=== PATIENT | female | born 1985 | race Caucasian/White ===

== ENCOUNTER 2016-12-17 10:58 | Emergency (ER) | payer OTHER ==
[~2016-12-17 10:58] MED LIST: COLACE100 MG PO; IMODIUM2 MG; LAC PO; LEVAQUIN500 MG PO; MAC100 PO; NORCO1 TA2 PO
[2016-12-17 11:00] VITALS: BP 124/62
== END 2016-12-17 12:36 | disposition home or self-care (01) ==
LOC: ED 10:58
DX: S63.614A Unspecified sprain of right ring finger, initial encounter (principal); S93.505A Unspecified sprain of left lesser toe(s), initial encounter; Y08.89XA Assault by other specified means, initial encounter; Y93.89 Activity, other specified; Y92.89 Other specified places as the place of occurrence of the external cause; Y99.8 Other external cause status
CPT/HCPCS: Q0092

== ENCOUNTER 2017-01-30 19:42 | Emergency (ER) | payer OTHER ==
[2017-01-30 21:16] VITALS: BP 146/75
== END 2017-01-30 21:16 | disposition home or self-care (01) ==
LOC: ED 19:42
DX: J02.9 Acute pharyngitis, unspecified (principal); I88.9 Nonspecific lymphadenitis, unspecified; Z88.0 Allergy status to penicillin; Z90.89 Acquired absence of other organs
CPT/HCPCS: J1885; J2930

== ENCOUNTER 2017-11-07 15:58 | Inpatient (IN) | payer OTHER ==
[~2017-11-07] VITALS: Ht 162.6 cm; Wt 71.9 kg
[2017-11-07 16:29] VITALS: Ht 162.6 cm; Wt 71.9 kg
[2017-11-07 17:53] LABS: PLATELET COUNT 222 x10^3mcL (130-400)
[2017-11-07 17:55] LABS: RED CELL DISTRIBUTION WIDTH 16.3 % (11.5-14.5)
[2017-11-07 18:04] LABS: CALCIUM 8.5 mg/dL (8.5-10.1); CARBON DIOXIDE 24.3 mmol/L (21-32); CHLORIDE SERUM 106 mmol/L (98-107); CREATININE SERUM 0.6 mg/dL (0.6-1.0); GFR1 > 60 mL/min; GLUCOSE SERUM 84 mg/dL (74-106); POTASSIUM SERUM 3.2 mmol/L (3.5-5.1); SODIUM SERUM 135 mmol/L (136-145)
[2017-11-07 18:07] LABS: ALBUMIN 3.2 g/dL (3.4-5.0); ALKALINE PHOSPHATASE 67 U/L (46-116); ALT/SGPT 15 U/L (14-59); AMYLASE 15 U/L (25-115); AST/SGOT 9 U/L (15-37); BILIRUBIN TOTAL 1.1 mg/dL (0.20-1.00); LIPASE 36 IU/L (73-393); TOTAL PROTEIN, SERUM 7.7 g/dL (6.4-8.2)
[2017-11-07 18:30] LABS: BAND NEUTROPHIL 12 % (0-10); BASOPHIL 0 % (0-2); MONOCYTE 2 % (0-7); SEGMENTED NEUTROPHILS 78 % (37-75)
[2017-11-07 18:32] LABS: PLATELET MORPHOLOGY PLATELETS NORMAL; rbc morphology (normal/abnorm) ABNORMAL (NORMAL)
[2017-11-07 20:30] VITALS: BP 108/63
[2017-11-07 21:05] LABS: T3 TOTAL 0.83 ng/mL
[2017-11-07 21:13] LABS: FREE T4 1.42 ng/dL (0.76-1.46); FREE THYROXINE INDEX 3.3 ug/dL (1.4-4.5); T4(THYROXINE) 8.7 ug/dL (4.7-13.3)
[2017-11-07 21:15] LABS: MAGNESIUM 1.7 mg/dL (1.8-2.4)
[2017-11-07 21:18] LABS: CHOLESTEROL/HDL RATIO 1.3
[2017-11-08 04:28] VITALS: BP 100/55
[2017-11-08 09:53] VITALS: BP 101/55
[2017-11-08 12:40] VITALS: BP 106/59
[2017-11-08 17:31] VITALS: BP 111/61; BP 111/73
[2017-11-08 17:59] LABS: microscopic required? YES; urine erythrocyte 2+ (NEGATIVE)
[2017-11-08 18:07] LABS: AMPHETAMINE QUAL UR NONE DETECTED (NEG <=1000)
[2017-11-08 19:15] VITALS: BP 109/61
[2017-11-09 05:59] VITALS: BP 103/60
[2017-11-09 06:45] LABS: CALCIUM 7.8 mg/dL (8.5-10.1); CARBON DIOXIDE 24.4 mmol/L (21-32); CHLORIDE SERUM 109 mmol/L (98-107); CREATININE SERUM 0.6 mg/dL (0.6-1.0); GFR1 > 60 mL/min; GLUCOSE SERUM 88 mg/dL (74-106); MAGNESIUM 2.2 mg/dL (1.8-2.4); SODIUM SERUM 141 mmol/L (136-145)
[2017-11-09 07:08] LABS: POTASSIUM SERUM 2.9 mmol/L (3.5-5.1)
[2017-11-09 07:29] LABS: BASOPHIL % 0.3 % (0-2); PLATELET COUNT 183 x10^3mcL (130-400)
[2017-11-09 08:20] LABS: RED CELL DISTRIBUTION WIDTH 16.2 % (11.5-14.5)
[2017-11-09 08:40] VITALS: BP 107/52
[2017-11-09 17:25] VITALS: BP 111/69
[2017-11-10 05:31] VITALS: BP 97/60
[2017-11-10 08:02] LABS: BASOPHIL % 0.4 % (0-2); PLATELET COUNT 217 x10^3mcL (130-400)
[2017-11-10 08:05] LABS: RED CELL DISTRIBUTION WIDTH 16.1 % (11.5-14.5)
[2017-11-10 08:25] LABS: CALCIUM 7.8 mg/dL (8.5-10.1); CARBON DIOXIDE 25.3 mmol/L (21-32); CHLORIDE SERUM 109 mmol/L (98-107); CREATININE SERUM 0.5 mg/dL (0.6-1.0); GFR1 > 60 mL/min; GLUCOSE SERUM 88 mg/dL (74-106); MAGNESIUM 2.2 mg/dL (1.8-2.4); PHOSPHOROUS 2.4 mg/dL (2.5-4.9); POTASSIUM SERUM 4.1 mmol/L (3.5-5.1); SODIUM SERUM 143 mmol/L (136-145)
[2017-11-10 09:29] VITALS: BP 113/61
== END 2017-11-10 15:40 | disposition home or self-care (01) | DRG 720 ==
LOC: ED 15:58 → DU 18:59 → MU 18:59 → DU 20:16 → MU 11-08 16:47
PROVIDERS: Emergency Medicine; Family Medicine
DX: A41.9 Sepsis, unspecified organism (principal); N17.0 Acute kidney failure with tubular necrosis; E44.0 Moderate protein-calorie malnutrition; E87.1 Hypo-osmolality and hyponatremia; E87.6 Hypokalemia; Z88.0 Allergy status to penicillin; Z90.49 Acquired absence of other specified parts of digestive tract; Z88.8 Allergy status to other drugs, medicaments and biological substances; K52.9 Noninfective gastroenteritis and colitis, unspecified; Z83.3 Family history of diabetes mellitus; Z82.49 Family history of ischemic heart disease and other diseases of the circulatory system; Z80.41 Family history of malignant neoplasm of ovary; Z68.31 Body mass index [BMI] 31.0-31.9, adult; D64.9 Anemia, unspecified; F17.200 Nicotine dependence, unspecified, uncomplicated; F10.20 Alcohol dependence, uncomplicated; Y90.9 Presence of alcohol in blood, level not specified; K82.8 Other specified diseases of gallbladder; N39.0 Urinary tract infection, site not specified; E87.8 Other disorders of electrolyte and fluid balance, not elsewhere classified; E83.39 Other disorders of phosphorus metabolism; K76.0 Fatty (change of) liver, not elsewhere classified
CPT/HCPCS: 83880; 84439; 87046; 87046-59; J1885; J1956; J3010; J3480; J3490; J7030; Q0092

== ENCOUNTER 2018-06-01 14:17 | Emergency (ER) | payer OTHER ==
[~2018-06-01] VITALS: Ht 149.9 cm; Wt 78.0 kg
[2018-06-01 14:33] VITALS: Ht 149.9 cm; Wt 78.0 kg
[2018-06-01 15:32] VITALS: BP 133/76
== END 2018-06-01 15:32 | disposition home or self-care (01) ==
LOC: ED 14:17
DX: J40 Bronchitis, not specified as acute or chronic (principal); Z90.89 Acquired absence of other organs; Z88.1 Allergy status to other antibiotic agents

== ENCOUNTER 2018-08-27 09:44 | Emergency (ER) | payer OTHER ==
[~2018-08-27] VITALS: Ht 149.9 cm; Wt 80.5 kg
[2018-08-27 09:48] VITALS: BP 124/74; Ht 149.9 cm; Wt 80.5 kg
== END 2018-08-27 11:01 | disposition home or self-care (01) ==
LOC: ED 09:44
DX: S20.211A Contusion of right front wall of thorax, initial encounter (principal); Z88.1 Allergy status to other antibiotic agents; Z90.89 Acquired absence of other organs; W18.30XA Fall on same level, unspecified, initial encounter; Y93.89 Activity, other specified; Y92.89 Other specified places as the place of occurrence of the external cause; Y99.8 Other external cause status